=== PATIENT | male | born 1995 | race Caucasian/White ===

== ENCOUNTER 2022-04-08 20:36 | Emergency (ER) | payer OTHER ==
[2022-04-08] MEDS ORDERED: Sulfameth/Trimethoprim DS 800-160mg TAB ONE (21:07)
[2022-04-08] MEDS ORDERED: Cephalexin 500 MG CAP ONE (21:07)
== END 2022-04-08 21:10 ==
LOC: MADERS 20:36
DX: L02.31 Cutaneous abscess of buttock (principal); Z87.891 Personal history of nicotine dependence
CPT/HCPCS: 99283